=== PATIENT | female | born 1995 | race Hispanic/Latino ===

== ENCOUNTER 2020-08-26 08:18 | Emergency (ER) | payer OTHER ==
[~2020-08-26] VITALS: Ht 152.4 cm; Wt 84.4 kg
[2020-08-26] MEDS ORDERED: CEFDINIR300 MG PO (08:38)
[2020-08-26] MEDS ORDERED: IBUPROFEN IB200 MG PO (08:38)
[2020-08-26] MEDS ORDERED: THERAFLU MS SE1 EACH PO (08:38)
[2020-08-26 09:33] VITALS: BP 139/86
== END 2020-08-26 09:41 | disposition home or self-care (01) ==
LOC: FSED 08:22
DX: J02.9 Acute pharyngitis, unspecified (principal); R05 Cough; B34.9 Viral infection, unspecified
CPT/HCPCS: 83518; 99283

== ENCOUNTER 2023-11-01 18:05 | Emergency (ER) | payer OTHER ==
[~2023-11-01] VITALS: Ht 152.4 cm; Wt 84.4 kg
[~2023-11-01 18:05] MED LIST: CEFDINIR300 MG PO; IBUPROFEN IB200 MG PO; THERAFLU MS SE1 EACH PO
[2023-11-01 18:29] VITALS: TEMP 98.9
[2023-11-01 19:53] VITALS: PULSE 105; RESP 16
[2023-11-01] MEDS: IBUPROFEN 400 MG TAB PO ONE (19:53)
[2023-11-01] MEDS: NEOMYCIN/POLYMYX/BACITR OINT 0.9 GM PKT TOP ONE (21:26)
[2023-11-01] MEDS: LIDOCAINE HCL 1% LOCAL INJ 20 ML VIAL INJ ONE (21:27)
[2023-11-01 22:01] VITALS: BP 135/94; PULSE 102; RESP 16; O2SAT 98
== END 2023-11-01 21:30 | disposition home or self-care (01) ==
LOC: ER 18:09
DX: S81.012A Laceration without foreign body, left knee, initial encounter (principal); W01.0XXA Fall on same level from slipping, tripping and stumbling without subsequent striking against object, initial encounter; Y93.6A Activity, physical games generally associated with school recess, summer camp and children; Y92.89 Other specified places as the place of occurrence of the external cause
CPT/HCPCS: 12002; 99283; J2001